=== PATIENT | male | born 1955 | race Caucasian/White ===

== ENCOUNTER 2016-11-09 18:11 | Emergency (ER) | payer OTHER ==
[2016-11-09 18:26] VITALS: BP 144/75; PULSE 68; RESP 18; TEMP 98.2; O2SAT 98
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
[2016-11-09 19:10] LABS: BASO # 0.1 K/uL (0.0-0.2); BASO % 0.9 % (0.0-2.0); EOS # 0.2 K/uL (0.0-0.7); EOS % 3.2 % (0.0-4.0); HEMOGLOBIN 14.2 g/dL (12.0-18.0); LYMPH # 2.3 K/uL (1.0-4.3); LYMPH % 38.5 % (20.0-40.0); MEAN CELL VOLUME 91.4 fl (80.0-94.0); MEAN CORPUSCULAR HEMOGLOBIN 30.6 pg (27.0-31.0); MEAN CORPUSCULAR HGB CONC 33.5 g/dL (33.0-37.0); MEAN PLATELET VOLUME 9.2 fl (7.2-11.7); MONO # 0.6 K/uL (0.0-0.8); MONO % 10.1 % (0.0-10.0); NEUT # 2.8 K/uL (1.8-7.0); NEUT % 47.3 % (50.0-75.0); NRBC % 0.1 % (0.0-0.0); RBC 4.62 Mil/uL (4.40-5.90)
[2016-11-09 19:20] LABS: ALB/GLOB RATIO 1.2 (1.0-2.1); ALBUMIN 3.8 g/dL (3.5-5.0); ALT/SGPT 37 U/L (21-72); AST/SGOT 17 U/L (17-59); BLOOD UREA NITROGEN 19 mg/dl (9-20); CALCIUM 8.9 mg/dL (8.4-10.2); GFR AFRICAN-AMERICAN > 60; GFR NON-AFRICAN AMERICAN > 60
[2016-11-09 19:34] LABS: INR 1.2 (0.9-1.2); PROTHROMBIN TIME 12.3 Seconds (9.8-13.1)
[2016-11-09 20:09] LABS: VENOUS BLOOD GAS BASE EXCESS 6.6 mmol/L (0.0-2.0); VENOUS BLOOD GAS PCO2 66 mmHg (40-60); VENOUS BLOOD GAS PO2 19 mm/Hg (30-55); VENOUS BLOOD PH 7.33 (7.32-7.43)
--- NOTE | 2016-11-09 20:28 | ED PDOC ---
- Laboratory Results Result Diagrams: 11/09/16 19:00 11/09/16 19:00 - ECG O2 Sat by Pulse Oximetry: 98 (RA) Medical Decision Making Medical Decision Makin: Patient signed over to provider from Dr. Roe pending labs, ultrasound, X-ray , and re-evaluation. Time: 2099 --Labs: no significant abnormality noted. Time: 2118 --US LE (left) FINDINGS: Deep veins: Common femoral, superficial femoral, popliteal and posterior tibial veins were evaluated. All veins examined are compressible. There are no intraluminal filling defects. There is expected blood flow on Doppler imaging. There is change in waveform with augmentation. IMPRESSION: No deep venous thrombosis in the visualized vascular segments of the left lower extremity Time: 2329 --Upon podiatry evaluation, patient is medically stable and requires no further treatment in the ED at this time. Patient will be discharged home with Rx for Keflex 500mg and Bactrim DS. Counseling was provided and all questions were answered regarding diagnosis and need for follow up with wound care center. There is agreement to discharge plan. Return if symptoms persist or worsen. Clinical Impression: Cellulitis Scribe Attestation: Documented by Isaak Milner acting as a scribe for Gianfranco Marcos MD. Provider Scribe Attestation: All medical record entries made by the Scribe were at my direction and personally dictated by me. I have reviewed the chart and agree that the record accurately reflects my personal performance of the history, physical exam, medical decision making, and the department course for this patient. I have also personally directed, reviewed, and agree with the discharge instructions and disposition. Disposition Doctor Will See Patient In The: Office Counseled Patient/Family Regarding: Studies Performed, Diagnosis, Need For Followup, Rx Given - Clinical Impression Clinical Impression: Cellulitis - POA Present On Arrival: None - Disposition Referrals: [facility] [Outside] [facility] [Outside] [facility] [Outside] Disposition: Routine/Home Disposition Time: 23:30 Condition: STABLE Prescriptions: Cephalexin [Keflex] 500 mg PO Q6 #40 capsule Sulfamethoxazole/Trimethoprim [Bactrim DS 800 mg-160 mg] 1 tab PO BID #20 tab Instructions: Cellulitis (ED) Forms: [employer] (Romanian), [employer] (Swiss) Print Language: ENGLISH
--- NOTE | 2016-11-09 21:19 | US ---
EXAM: US Duplex Left Lower Extremity Veins CLINICAL HISTORY: 61 years old, male; Signs and symptoms; Swelling of limb; Lower extremity, left; Additional info: Pain and swelling TECHNIQUE: Real-time ultrasound scan of the veins of the left lower extremity with color Doppler flow, spectral waveform analysis and compression. EXAM DATE/TIME: 11/09/2016 6:36 PM COMPARISON: US - DUPLEX LOWER EXTRM VEIN BILAT 06/15/2015 6:36:53 PM FINDINGS: Deep veins: Common femoral, superficial femoral, popliteal and posterior tibial veins were evaluated. All veins examined are compressible. There are no intraluminal filling defects. There is expected blood flow on Doppler imaging. There is change in waveform with augmentation. IMPRESSION: No deep venous thrombosis in the visualized vascular segments of the left lower extremity
[2016-11-09] MEDS ORDERED: Piperacillin/Tazobact 3.375 GM in Sodium Chloride 0.9% 100 ML IV STA (21:43)
[2016-11-09] MEDS ORDERED: Piperacillin/Tazobact 3.375 gm Inj IVPB ONE (22:10)
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
--- NOTE | 2016-11-10 07:30 | RAD ---
HISTORY: pain COMPARISON: No prior FINDINGS: BONES: Normal. No fracture. JOINTS: Normal. No osteoarthritis. SOFT TISSUE: Extensive surgical clips in the soft tissues of the calf as well as scattered linear foreign densities. OTHER FINDINGS: None . IMPRESSION: No fracture.
== END 2016-11-09 23:55 | disposition home or self-care (01) ==
LOC: H.ER 18:11
DX: L03.116 Cellulitis of left lower limb (principal)

== ENCOUNTER 2017-07-22 14:30 | Emergency (ER) | payer OTHER ==
[2017-07-22 15:19] VITALS: BP 114/75; PULSE 60; RESP 18; TEMP 98; O2SAT 99
[2017-07-22] MEDS ORDERED: Naproxen 500 MG TAB PO STA (15:34)
--- NOTE | 2017-07-22 15:39 | ED PDOC ---
Lower Extremity Pain/Injury Time Seen by Provider: 07/22/17 15:29 Chief Complaint (Nursing): Lower Extremity Problem/Injury Chief Complaint (Provider): Right knee pain History Per: Patient History/Exam Limitations: no limitations Onset/Duration Of Symptoms: Days (x 2 weeks) Current Symptoms Are (Timing): Still Present Additional Complaint(s): 61 y/o male presents to the emergency department complaining of right knee pain and swelling, worsening over the past 2 weeks. Patient states he slipped and fell down the stairs 2 weeks ago. He denies head trauma or other injuries. Patient applied an NIESHA wrap to the knee with minimal relief. He is able to ambulate with pain. Denies taking any pain medication today. Denies any associated calf pain, numbness, tingling, or other complaints. PMD: Provider MARTHA Past Medical History Reviewed: Historical Data, Nursing Documentation, Vital Signs Vital Signs: Last Vital Signs Temp 98 F 07/22/17 15:17 Pulse 60 07/22/17 15:17 Resp 18 07/22/17 15:17 BP 114/75 07/22/17 15:17 Pulse Ox 99 07/22/17 15:17 - Medical History PMH: Deep Vein Thrombosis - Family History Family History: States: Unknown Family Hx - Social History Current smoker - smoking cessation education provided: No Alcohol: None Drugs: Denies - Immunization History Hx Tetanus Toxoid Vaccination: No Hx Influenza Vaccination: No Hx Pneumococcal Vaccination: No - Home Medications Home Medications: Ambulatory Orders Medication Instructions Recorded Naproxen [Naprosyn] 500 mg PO Q12 PRN #20 tab 04/02/14 Naproxen [Naprosyn] 500 mg PO BID PRN #20 tablet 06/15/15 Oseltamivir Phosphate [Tamiflu] 75 mg PO BID #10 cap 06/15/15 Cephalexin [Keflex] 500 mg PO Q6 #40 capsule 11/09/16 Sulfamethoxazole/Trimethoprim 1 tab PO BID #20 tab 11/09/16 [Bactrim DS 800 mg-160 mg] Naproxen 375 mg PO Q8 PRN #21 tablet 07/22/17 oxyCODONE/Acetaminophen [Percocet 1 ea PO Q6 PRN #15 tab 07/22/17 5/325 mg Tab] - Allergies Allergies/Adverse Reactions: Allergies Allergy/AdvReac Type Severity Reaction Status Date / Time No Known Allergies Allergy Verified 11/09/16 18:23 Review of Systems ROS Statement: Except As Marked, All Systems Reviewed And Found Negative Musculoskeletal: Positive for: Leg Pain (right knee pain and swelling) Neurological: Negative for: Weakness, Numbness, Other (tingling) Physical Exam - Reviewed Nursing Documentation Reviewed: Yes Vital Signs Reviewed: Yes - Physical Exam Appears: Positive for: Non-toxic, No Acute Distress Pulses-Dorsalis Pedis (L): 2+ Pulses-Dorsalis Pedis (R): 2+ Extremity: Positive for: Tenderness (to the medial aspect of right knee, nontender patella), Swelling (mild effusion noted at right knee, no ecchymosis) , Other (Able to flex and extend with some limitation secondary to pain) Neurologic/Psych: Positive for: Alert, Oriented - ECG O2 Sat by Pulse Oximetry: 99 (RA) Pulse Ox Interpretation: Normal - Progress ED Course And Treament: xry of knee: IMPRESSION: Avulsed fracture fragment from the lateral tibial plateau. Associated joint effusion likely hemarthrosis. Placed in knee immobilizer and give crutches. Case d/w Dr. Miller. Patient to f/u with clinic to obtain MRI and further follow up. njrx search with no results noted. As patient has moderate pain from fracture, will write short supply of narcotic pain medication for pain uncontrolled by naproxen. Medical Decision Making Medical Decision Making: Impression: Right knee pain and swelling Time: 15:34 Plan: --Naproxen 500 mg PO --X-ray right knee Scribe Attestation: Documented by Connie Ness, acting as a scribe for Graciela Aleman PA-C Provider Scribe Attestation: All medical record entries made by the Scribe were at my direction and personally dictated by me. I have reviewed the chart and agree that the record accurately reflects my personal performance of the history, physical exam, medical decision making, and the department course for this patient. I have also personally directed, reviewed, and agree with the discharge instructions and disposition. Disposition - Clinical Impression Clinical Impression: Closed fracture of lateral portion of right tibial plateau - Patient ED Disposition Is Patient to be Admitted: No - Disposition Referrals: Maurisio Miller III, MD [Staff Provider] - [facility] [Outside] [facility] [Outside] Disposition: Routine/Home Disposition Time: 18:23 Condition: FAIR Prescriptions: Naproxen 375 mg PO Q8 PRN #21 tablet PRN Reason: Pain, Moderate (4-7) oxyCODONE/Acetaminophen [Percocet 5/325 mg Tab] 1 ea PO Q6 PRN #15 tab PRN Reason: Pain, Severe (8-10) Instructions: Tibia Fracture Forms: [facility] (Korean) Print Language: HUNGARIAN
[2017-07-22] MEDS ORDERED: Naproxen 500 MG TAB PO ONE (16:05)
--- NOTE | 2017-07-22 17:09 | RAD ---
PROCEDURE: Right Knee Radiographs. HISTORY: KNEE INJURY COMPARISON: None. FINDINGS: BONES: Fracture lateral tibial plateau. Small fragment appears to be avulsed. The finding is marked on the study for review. JOINTS: Normal. No osteoarthritis. JOINT EFFUSION: Suprapatellar joint effusion. OTHER FINDINGS: None. IMPRESSION: Avulsed fracture fragment from the lateral tibial plateau. Associated joint effusion likely hemarthrosis.
== END 2017-07-22 19:05 | disposition home or self-care (01) ==
LOC: H.ER 14:30
DX: S82.141A Displaced bicondylar fracture of right tibia, initial encounter for closed fracture (principal); W10.8XXA Fall (on) (from) other stairs and steps, initial encounter; Y92.89 Other specified places as the place of occurrence of the external cause; Z86.718 Personal history of other venous thrombosis and embolism